=== PATIENT | male | born 1985 | race Caucasian/White ===

== ENCOUNTER 2022-08-23 17:26 | Emergency (ER) | payer OTHER, SELFPAY ==
[2022-08-23 17:27] VITALS: BP 119/76; PULSE 84; RESP 18; TEMP 36.6; O2SAT 98; BMI 26.6
--- NOTE | 2022-08-23 19:54 | CT_ITS ---
INDICATION: right inguinal pain EXAMINATION: CT ABDOMEN AND PELVIS WITH CONTRAST - CT Abdomen And Pelvis W/ Contrast Injection TECHNIQUE: Helically acquired images were obtained of the abdomen and pelvis following IV contrast. A radiation dose optimization technique was used for this scan. IV Contrast dosage and agent: 100 cc [id number] Oral contrast: None. COMPARISON: None. FINDINGS: LOWER CHEST: Lung bases are clear. No cardiomegaly or pericardial effusion. LIVER: Homogeneous. No focal mass. GALLBLADDER AND BILIARY TREE: No calcified gallstones. No gallbladder distension or wall edema. No intra- or extrahepatic biliary ductal dilation. PANCREAS: No focal cystic or solid mass. SPLEEN: Normal size without focal cystic or solid mass. ADRENAL GLANDS: No nodules. KIDNEYS AND URETERS: Normal renal size and position. No hydronephrosis. PERITONEUM: No ascites or free air. BOWEL: Normal appendix. No stomach or bowel distension. No focal inflammatory change. LYMPH NODES: No enlarged mesenteric or retroperitoneal lymph nodes. VESSELS: Aorta is non-dilated. URINARY BLADDER: Unremarkable. REPRODUCTIVE ORGANS: No pelvic masses. ABDOMINAL WALL: Small fat-containing umbilical hernia. Mild fatty induration with increased enhancement in the right inguinal canal. BONES: Unremarkable. CT/Abdomen/Pelvis W IV Cont ONLY IMPRESSION: Findings consistent with right-sided vasitis. Electronically Signed: Jeancarlos Black MD at 21:10 EST ,
--- NOTE | 2022-08-23 19:59 | EX.ED.DYSGE1 ---
HPI History of Present Illness Chief Complaint: Abd Pain Narrative Narrative: This is a 37-year-old male presenting with right inguinal pain for about 10 days. He states that the pain is intermittent. He does feel a bulging in the right inguinal area. He states he believes he might have a hernia. He did not feel a pop. He states that sometimes the pain will hurt for a very long time and other times the pain is completely gone. Currently he is pain-free. He states when he was in the emergency room waiting room it was painful. He has been taking [id number] medication for this. He called his PCP who sent him to the emergency room for evaluation. He denies any fever, chills, nausea, vomiting. He denies abdominal pain. He has no constipation or diarrhea. He has no urinary symptoms. [facility] Medical History Hernia Home Medications aspirin 325 mg tablet 325 mg PO DAILY #30 tabs 08/23/22 [Rx Last Taken Unknown] herbal drugs cap PO DAILY 08/23/22 [History Last Taken Unknown] levofloxacin 500 mg tablet 500 mg PO DAILY #7 tabs 08/23/22 [Rx Last Taken Unknown] Social History Smoking Status: Former smoker ROS ROS ED Constitutional Constitutional ED: Denies chills or fever(s) Eyes Eyes: Denies change in vision or diplopia ENT ENT ED: Denies rhinorrhea or sore throat Cardiovascular Cardiovascular: Denies chest pain or palpitations Respiratory/Chest Respiratory/Chest: Denies cough or dyspnea Gastrointestinal Gastrointestinal: Reports other Details: Right inguinal pain and swelling ; Denies abdominal pain, nausea or vomiting Genitourinary Genitourinary ED: Denies dysuria or hematuria Musculoskeletal Musculoskeletal: Denies arthralgias or back pain Integumentary Reports other Details: Right inguinal pain and Neurologic Neurologic: Denies headache(s) or paresthesias Psychiatric Psychiatric: Denies anxiety or depression EXAM Physical Exam Const Vital Signs: 08/23/22 17:27 08/23/22 21:53 Temperature 98 F Temperature Source Temporal Pulse Rate 84 Respiratory Rate 18 16 Blood Pressure 119/76 Blood Pressure Mean 90 Pulse Ox 98 Oxygen Delivery Method Room Air Positive well nourished General Appearance ED: NAD HEENT Reports moist mucous membranes Eyes PERRL and EOMs intact bilaterally General Eye ED: Negative for pale conjunctiva or scleral icterus Neck no lymphadenopathy Resp normal respiratory effort and clear to auscultation bilaterally Cardio regular rate and regular rhythm GI normal to inspection, nondistended, normoactive bowel sounds Narrative: There is about a 2 to 3 cm area of circular swelling in the right inguinal area which does not appear to be a hernia. This is not reducible. It is tender to palpation. He was erythematous. There is no drainage. Extremity Extremity Narrative: As documented above Neuro oriented x3 and CN's II-XII intact bilaterally Sensorium / Orientation: alert Motor Exam: strength 5/5 throughout Psych mental status grossly normal MDM MDM MDM Narrative Medical decision making narrative: Well-appearing 37-year-old male with right inguinal pain for 10 days. No systemic signs or symptoms. He has normal vital signs. On examination he has an area of redness and swelling in the right inguinal region but it does not appear to be inguinal hernia. By exam it does not appear to be an abscess either. Appears to be a localized area of inflammation with possible early cellulitis. I did obtain blood work and his CBC and BMP are normal. He does not have an elevated white blood cell count or left shift. Renal function and electrolytes appear to be within normal limits. Urinalysis was negative for infection. CT of the abdomen pelvis is obtained dementia this is not a hernia or something surgical and it shows a right-sided area of inflammation in the right inguinal region. It was interpreted as vasitis. Clinically it appears to be more of a cellulitis. I spoke with Dr. Lewis guarding this however he felt this was more of a general surgery follow-up. I spoke with Dr. Gray who recommended placing the patient on 325 mg of aspirin daily and started him on Levaquin daily and he can follow-up in the office. This was discussed with the patient is amenable to this. He is discharged home in stable condition. Return precautions are discussed. Impression: 1. Right inguinal cellulitis Lab Data Attestation: I reviewed the patient's lab results. Labs: Laboratory Results - last 24 hr 08/23/22 08/23/22 08/23/22 20:00 20:00 21:38 WBC 6.9 RBC 4.86 Hgb 14.8 Hct 43.9 MCV 90.3 MCH 30.5 MCHC 33.7 RDW Std Deviation 39.5 RDW Coeff of Nini 11.9 Plt Count 194 MPV 11.3 Immature Gran % (Auto) 0.300 Neut % (Auto) 60.9 Lymph % (Auto) 28.5 Cottle % (Auto) 6.8 Eos % (Auto) 3.2 Baso % (Auto) 0.3 Absolute Neuts (auto) 4.2 Absolute Lymphs (auto) 1.96 Nucleated RBC % 0 Sodium 140 Potassium 3.5 Chloride 106 Carbon Dioxide 28.0 Anion Gap 6 BUN 11 Creatinine 1.17 Estim Creat Clear Calc 90.12 Est GFR (MDRD) Af Amer 91 Est GFR (MDRD) Non-Af 75 BUN/Creatinine Ratio 9.4 L Glucose 130 H Calcium 9.4 Urine Color Yellow Urine Clarity Clear Urine pH 6.0 Ur Specific Bradford 1.015 Urine Protein Negative Urine Glucose (UA) Normal Urine Ketones Negative Urine Occult Blood Negative Urine Nitrite Negative Urine Bilirubin Negative Urine Urobilinogen Normal Ur Leukocyte Esterase Negative Urine RBC 0 SEEN Urine WBC 0 SEEN Ur Squamous Epith Cells 0 SEEN Urine Bacteria 0 SEEN Urine Mucus 0 SEEN Radiography Diagnostic Testing: Clinical Impression(s) from Imaging Studies Abdomen/Pelvis CT 08/23/22 19:54 IMPRESSION: Findings consistent with right-sided vasitis. Electronically Signed: Jeancarlos Black MD at 21:10 EST Reading Location ID and State: [address] [place] [address] Tel , Service support , Discharge Plan Triage Chief Complaint: Abd Pain ED Provider: Niles Chacon Dx/Rx/DC Orders Instructions: ED Cellulitis Prescriptions: New aspirin 325 mg tablet 325 mg PO DAILY Qty: 30 0RF levofloxacin 500 mg tablet 500 mg PO DAILY Qty: 7 0RF No Action herbal drugs Capsule PO DAILY Primary Care Provider: Urban Parisi Referrals: Urban Parisi DO [Primary Care Provider] - Disposition Disposition: Home, Self Care
[2022-08-23 20:09] LABS: Absolute Lymphocyte Count 1.96 X10^3/uL (0.83-4.51); Absolute Neutrophil Count 4.2 X10^3/uL (2.0-7.7); Basophil# 0.02 X10^3/uL; Basophil% 0.3 % (0-1); Eosinophil# 0.22 X10^3/uL; Eosinophils% 3.2 % (0-5); Hematocrit 43.9 % (40-54); Hemoglobin 14.8 g/dL (13.0-16.5); Lymphocyte # 1.96 X10^3/ul (0.83-4.51); Lymphocyte % 28.5 % (19-41); Mean Corp Hgb Conc 33.7 g/dL (32-36); Mean Corpuscular Hgb 30.5 pg (27.0-32.0); Mean Corpuscular Volume 90.3 fL (80-94); Mean Platelet Vol. 11.3 fl (6.2-12.0); Monocyte# 0.47 X10^3/uL; Monocyte% 6.8 % (0-10); NRBC Flagged by Analyzer 0 % (0-5); Neutrophil # 4.18 X10^3/uL (2.7-7.7); Neutrophil % 60.9 % (47-70); Platelet Count 194 K/mm3 (150-450); RBC Distribution Width CV 11.9 % (11.6-14.6); RBC Distribution Width SD 39.5 fl (35.1-43.9); Red Blood Count 4.86 M/mm3 (4.6-6.2); White Blood Count 6.9 K/mm3 (4.4-11.0)
[2022-08-23 20:19] LABS: Anion Gap 6 (5-15); BUN 11 mg/dL (7-18); BUN/Creat Ratio 9.4 RATIO (10-20); Calcium,Total 9.4 mg/dL (8.5-10.1); Chloride 106 mmol/L (98-107); Creatinine, Serum 1.17 mg/dL (0.70-1.30); EST Glomerular Filtration Rate 75 mL/min (>60); Est Glom Filt Rate - Afr Amer 91 mL/min (>60); Estimated Creatinine Clearance 90.12 ml/min; Glucose 130 mg/dL (74-106); Potassium 3.5 mmol/L (3.5-5.1); Sodium Level 140 mmol/L (136-145)
[2022-08-23 21:41] LABS: Bacteria 0 SEEN /hpf (None Seen); Mucous, Urine 0 SEEN /hpf (<or=2+); Red Blood Cells-Urine 0 SEEN /hpf (0-5); Squamous Epithelial Cells - UA 0 SEEN /hpf (0-5); White Blood Cells 0 SEEN /hpf (0-5)
[2022-08-23 21:53] VITALS: RESP 16
[2022-08-23 22:04] LABS: Color, Urine Yellow (Yellow); Glucose, Dipstick Normal (Normal); Ketone-Dipstick Negative (Negative); Leukocyte Esterase-Dipstick Negative /ul (Negative); Nitrite-Dipstick Negative (Negative); Occult Blood-Urine Negative /ul (Negative); Protein-Dipstick Negative (Negative); Specific Gravity, Urine 1.015 (1.002-1.030); Urine Bilirubin Dipstick Negative (Negative); Urine Clarity Clear (Clear); Urine Urobilinogen Normal (Normal)
[2022-08-23] MEDS: levoFLOXacin 500 MG Tablet PO (22:29)
[2022-08-23 22:33] VITALS: RESP 16
== END 2022-08-23 22:33 | disposition home or self-care (01) ==
PROVIDERS: Emergency Provider Student in an Organized Health Care Education/Training Program; PCP Family Medicine; Visit Provider Student in an Organized Health Care Education/Training Program
DX: L03.314 Cellulitis of groin (principal); Z87.891 Personal history of nicotine dependence
CPT/HCPCS: 74177; 80048; 81001; 85025; 99284; Q9967; A4216